=== PATIENT | female | born 1955 | race Caucasian/White ===

== ENCOUNTER → 2024-06-10 | Outpatient (CLI) | payer MEDICARE ==
--- NOTE | 2024-06-11 12:32 | MR ---
EXAMINATION TYPE: MR tspine/lspine wo/w con DATE OF EXAM: 06/10/2024 COMPARISON: None HISTORY: mid back pain, low back pain down left leg. ataxic gait, history of breast cancer. CONTRAST: Performed utilizing 7 mL intravenous Gadavist gadolinium contrast. TECHNIQUE: Multiplanar, multiecho imaging on a 3.0 Benita magnet is performed through the thoracic spi ne. Spinal cord maintains normal signal through its visualized course. Vertebral body alignment is normal. Vertebral body heights are preserved. Disc heights are preserved. Disc hydration levels are preserved. T11-12: There is a small left paracentral disc bulge. This has mild anterior thecal sac compression w ithout cord contact or spinal canal stenosis. There is some mild facet hypertrophy in the region of T8-9 and T9-10. No spinal canal stenosis is evident. No abnormal enhancement is evident IMPRESSION: 1. Mild left paracentral disc bulge T11-12 without cord contact or spinal canal stenosis. EXAMINATION TYPE: MR tspine/lspine wo/w con DATE OF EXAM: 06/10/2024 COMPARISON: None HISTORY: mid back pain, low back pain down left leg. ataxic gait, history of breast cancer. CONTRAST: 7 mL intravenous Gadavist. TECHNIQUE: Multiplanar, multisequence images of the lumbar spine were acquired. FINDINGS: Cord terminates at the L1 level. Following contrast no suspicious enhancement is evident. Neural foramen are patent. L5-S1: No significant disc bulge or disc herniation. No spinal canal stenosis. No foraminal stenosi s. L4-L5: Disc bulge is present with anterior thecal sac flattening. No AP spinal canal stenosis or neur al foraminal stenosis evident No spinal canal stenosis. No foraminal stenosis. L3-L4: No significant disc bulge or disc herniation. No spinal canal stenosis. No foraminal stenosi s. Mild facet hypertrophy is present. L2-L3: No significant disc bulge or disc herniation. No spinal canal stenosis. No foraminal stenosi s. L1-L2: No significant disc bulge or disc herniation. No spinal canal stenosis. No foraminal stenosi s. T12-L1: No significant disc bulge or disc herniation. No spinal canal stenosis. No foraminal stenos is. IMPRESSION: 1. Mild disc bulging L4-5 without spinal canal stenosis rated 2. Mild facet hypertrophy at L3-4 [facility]: [id number], 06/11/2024 12:30 PM
== END | disposition home or self-care (01) ==
LOC: RADMRIMAIN 07:23
PROVIDERS: ATTEND Psychiatry & Neurology Neurology
DX: M51.26 Other intervertebral disc displacement, lumbar region (principal); M51.24 Other intervertebral disc displacement, thoracic region; M47.816 Spondylosis without myelopathy or radiculopathy, lumbar region; R26.0 Ataxic gait; R41.3 Other amnesia; M54.2 Cervicalgia; Z85.3 Personal history of malignant neoplasm of breast
CPT/HCPCS: 72157; 72158

== ENCOUNTER → 2024-06-13 | Outpatient (CLI) | payer MEDICARE ==
--- NOTE | 2024-06-13 23:07 | MR ---
EXAMINATION TYPE: MR brain wo/w con DATE OF EXAM: 06/13/2024 COMPARISON: None HISTORY: Memory loss, Dizziness CONTRAST: Performed utilizing 7.5 mL intravenous Gadavist gadolinium contrast. TECHNIQUE: Multiplanar, multiecho imaging on a 3.0 Benita magnet is performed through the brain. Stud y is performed within 24 hours of arrival to the hospital. The craniovertebral junction is normal. The pituitary is normal. Diffusion-weighted imaging is performed. No abnormal hyperintensity is present to suggest an acute i ntracranial infarct or acute ischemic change. There are multiple scattered small areas of white matter change. There may be some [place]ian degenera tion in the cerebral peduncles. Multiple scattered centrum semiovale and negrete radiata white matter changes are present. Findings are nonspecific but can be related to vascular ischemic change. Differe ntial diagnosis includes vasculitis, Lyme disease, multiple sclerosis. No suspicious enhancement. Ventricles and sulci are appropriate for the patient age. IMPRESSION: 1. Multiple small areas of nonspecific white matter hyperintensities. Findings are nonspecific but ca n be related to microvascular ischemic change and multiple sclerosis among other etiologies. [facility], , 06/13/2024 11:04 PM
== END | disposition home or self-care (01) ==
LOC: RADMRIMAIN 16:56
PROVIDERS: ATTEND Psychiatry & Neurology Neurology
DX: R90.82 White matter disease, unspecified (principal); R26.0 Ataxic gait; R41.3 Other amnesia; R42 Dizziness and giddiness; G35 Multiple sclerosis; M54.2 Cervicalgia; Z85.3 Personal history of malignant neoplasm of breast
CPT/HCPCS: 70553